=== PATIENT | female | born 1945 | race Caucasian/White ===

== ENCOUNTER 2016-11-27 08:09 | Outpatient (RCR) | payer MEDICARE ==
--- OUTSIDE RECORDS SUMMARY | 2016-11-25 14:17 | XMS REPORT | Continuity of Care Document ---
Author Author [facility] Organization [facility] Address Unknown Phone Unavailable Support Name Relationship Address Phone NHUNG MURRAY MD Caregiver [address] [place] [address] [place] Next Of Kin [address] [place], [place] [id number] Insurance Providers Payer Name Policy Number Subscriber Name Relationship Minerva Manjarrez Choice [id number] Kezia Gupta 17 Self / Same As Patient Advance Directives Directive Response Recorded Date/Time Advance Directives No 01/03/15 8:00am Organ Donor Yes 01/03/15 8:00am Resuscitation Status Full Code 01/03/15 8:00am Problems No known problems or medical conditions. Medications Medication Dose Route Sig Days/Qty Instructions Order Date Discontinued Date Status Estradiol 1 Mg PO EVERY OTHER MORNING 01/01/15 Active Meloxicam (Mobic) 15 Mg PO DAILY 01/01/15 Active Alendronate Sodium 70 Mg PO WEEKLY TAKES ON Fridays01/01/15 Active [place]-3/Dha/Epa/Fish Oil 1,000 Mg PO DAILY 01/01/15 Active Ascorbic Acid 1,000 Mg PO DAILY 01/01/15 Active Magnesium Oxide 500 Mg PO DAILY 01/01/15 Active Cholecalciferol (Vitamin D3) 1,000 Unit PO DAILY 01/01/15 Active Folic Acid/Mv,Fe,Other Min 1 Each PO DAILY 01/01/15 Active Tamsulosin HCl 0.4 Mg PO DAILY 01/01/15 Active Oxycodone Hcl/Acetaminophen 1 Each PO EVERY 4HRS PRN PAIN 01/01/15 Active Nitrofurantoin Macrocrystals 1 Each PO TWICE A DAY 14 Qty 01/03/15 Active Phenazopyridine HCl 1 Each PO TID PRN 21 Qty 01/03/15 Active Social History Social History Problem Response Recorded Date/Time Recent Foreign Travel No 01/03/2015 8:00am Smoking Status Current Everyday Smoker 01/03/2015 8:02am Query Response Start Date Stop Date Smoking Status Current Everyday Smoker Hospital Discharge Instructions No hospital discharge instructions. Plan of Care No plan of care. Functional Status No functional status results. Allergies, Adverse Reactions, Alerts Allergen Type Severity Reaction Status Last Updated No Known Drug Allergies Active 01/01/15 Immunizations Name Given Type Date of Influenza Vaccine 08/05/14 Historical Vital Signs Acute Vital Signs Vital Response Date/Time Temperature (Fahrenheit) 98.1 degrees F (97.6 - 99.5) Temperature (Calculated Celsius) 36.13640 degrees C (36.4 - 37.5) Temperature Source Temporal Pulse Rate (adult) 70 bpm (60 - 90) Respiratory Rate 18 bpm (12 - 24) O2 Sat by Pulse Oximetry 94 % (88 - 100) Blood Pressure 111/82 mm Hg Pain Pain Intensity 0 Height (Feet) 5 feet Height (Inches) 3.50 inches Height (Calculated Centimeters) 161.049159 cm Weight (Pounds) 136 pounds Weight (Calculated Grams) 51319.563 gm Weight (Calculated Kilograms) 61.180287 kilograms Height 5 ft 3.5 in Weight 136 lb Body Mass Index 23.7 kg/m^2 Results Laboratory Results Test Name Result Units Flags Reference Collection Date/Time Result Date/ Time Comments White Blood Count 7.2 10^3/uL 4.3-11.0 01/01/2015 2:30pm 01/01/2015 2: 57pm Red Blood Count 4.56 10^6/uL 4.35-5.85 01/01/2015 2:30pm 01/01/2015 2: 57pm Hemoglobin 14.1 G/DL 11.5-16.0 01/01/2015 2:30pm 01/01/2015 2:57pm Hematocrit 41 % 35-52 01/01/2015 2:30pm 01/01/2015 2:57pm Mean Corpuscular Volume 91 FL 80-99 01/01/2015 2:30pm 01/01/2015 2: 57pm Mean Corpuscular Hemoglobin 31 PG 25-34 01/01/2015 2:30pm 01/01/2015 2: 57pm Mean Corpuscular Hemoglobin Concent 34 G/DL 32-36 01/01/2015 2:30pm 12/2014 2:57pm Red Cell Distribution Width 12.8 % 10.0-14.5 01/01/2015 2:30pm 2014 2:57pm Platelet Count 312 10^3/uL 130-400 01/01/2015 2:30pm 01/01/2015 2:57pm Mean Platelet Volume 9.6 FL 7.4-10.4 01/01/2015 2:30pm 01/01/2015 2: 57pm Neutrophils (%) (Auto) 52 % 42-75 01/01/2015 2:30pm 01/01/2015 2:57pm Lymphocytes (%) (Auto) 38 % 12-44 01/01/2015 2:30pm 01/01/2015 2:57pm Monocytes (%) (Auto) 8 % 0-12 01/01/2015 2:30pm 01/01/2015 2:57pm Eosinophils (%) (Auto) 2 % 0-10 01/01/2015 2:30pm 01/01/2015 2:57pm Basophils (%) (Auto) 0 % 0-10 01/01/2015 2:30pm 01/01/2015 2:57pm Neutrophils # (Auto) 3.8 X 10^3 1.8-7.8 01/01/2015 2:30pm 01/01/2015 2: 57pm Lymphocytes # (Auto) 2.7 X 10^3 1.0-4.0 01/01/2015 2:30pm 01/01/2015 2: 57pm Monocytes # (Auto) 0.6 X 10^3 0.0-1.0 01/01/2015 2:30pm 01/01/2015 2: 57pm Eosinophils # (Auto) 0.1 10^3/uL 0.0-0.3 01/01/2015 2:30pm 01/01/2015 2 :57pm Basophils # (Auto) 0.0 10^3/uL 0.0-0.1 01/01/2015 2:30pm 01/01/2015 2: 57pm Sodium Level 140 MMOL/L 135-145 01/01/2015 2:30pm 01/01/2015 3:13pm Potassium Level 3.6 MMOL/L 3.6-5.0 01/01/2015 2:30pm 01/01/2015 3:13pm Chloride Level 107 MMOL/L 98-107 01/01/2015 2:30pm 01/01/2015 3:13pm Carbon Dioxide Level 25 MMOL/L 21-32 01/01/2015 2:30pm 01/01/2015 3: 13pm Blood Urea Nitrogen 14 MG/DL 7-18 01/01/2015 2:30pm 01/01/2015 3:13pm Creatinine 0.63 MG/DL 0.60-1.30 01/01/2015 2:30pm 01/01/2015 3:13pm BUN/Creatinine Ratio 22 01/01/2015 2:30pm 01/01/2015 3:13pm Estimat Glomerular Filtration Rate > 60 01/01/2015 2:30pm 2014 3:13pm GFR INTERPRETIVE DATA UNITS FOR ESTIMATED GFR (eGFR): mL/min/1.73 M2 REFERENCE RANGE FOR ESTIMATED GFR (eGFR) eGFR NORMAL eGFR >60 MODERATELY DECREASED eGFR 30-59 SEVERLY DECREASED eGFR 15-29 KIDNEY FAILURE <15 (OR DIALYSIS) Glucose Level 91 MG/DL 70-105 01/01/2015 2:30pm 01/01/2015 3:13pm Uric Acid 3.1 MG/DL 2.6-7.2 01/01/2015 2:30pm 01/01/2015 3:13pm Calcium Level 9.3 MG/DL 8.5-10.1 01/01/2015 2:30pm 01/01/2015 3:13pm Phosphorus Level 2.3 MG/DL 2.3-4.7 01/01/2015 2:30pm 01/01/2015 3:13pm Calcium (PTH Intact) 9.3 MG/DL 8.5-10.5 01/01/2015 2:30pm 01/02/2015 7: 35am Parathyroid Hormone (Intact) 83 H PG/ML 10-65 01/01/2015 2:30pm 2014 7:35am The Interpretation for this test has been moved online at: [email or web address] Enter Test Number:[id number] Procedures No known history of procedures. Encounters Encounter Location Date/Time Registered [facility] 01/03/15 6:31am Registered Clinic [facility] 01/01/15 1:57pm
--- NOTE | 2016-11-25 14:35 | Diagnostic Imaging Report ---
INDICATION: Nephrolithiasis/ TECHNIQUE: A single view of the abdomen was obtained. COMPARISON: 11/27/2015. FINDINGS: Numerous calcifications are again projecting over the upper and lower poles of the left kidney. Faint calcifications are also seen over the upper and mid aspects of the right kidney. Calcifications in the pelvis are unchanged and likely represent phleboliths. There is no evidence of stone along the course of either ureter. IMPRESSION: Bilateral nephrolithiasis without plain film evidence of ureteral stone. Otherwise, no acute abnormality is detected. Dictated by: Dictated on workstation # [id number]
[~2016-11-27 08:09] MED LIST: ALEN70TA47 PO; ASCO100083 PO; CHOL100061 PO; ESTR1TAB24 PO; FOLI1TAB11 PO; HYDR-3876 PO; MAGN500C4 PO; MELO-195 PO; NITR-65 PO; NITR100C44 PO; OMEG1CAP74 PO; OXYC-12 PO; PHEN200T27 PO; TAMS0.4C9 PO
[2016-12-01 22:39] LABS: STONE RISK AMMONIUM 22 mEq/24hr (14-62); STONE RISK BRUSHITE 0.66 (< 2.00); STONE RISK CALCIUM 190 mg/day (< 250); STONE RISK CITRATE 446 mg/day (> 320); STONE RISK CREATININE 800 mg/day (600-1800); STONE RISK MAGNESIUM 101 mg/day (> 60); STONE RISK OXALATE 21 mg/day (< 45); STONE RISK PH 5.5 (5.5-7.0); STONE RISK PHOSPHOROUS 689 mg/day (< 1100); STONE RISK POTASSIUM 26 mEq/24hr (19-135); STONE RISK SODIUM 132 mEq/24hr (< 200); STONE RISK STRUVITE 0.07 (< 75.00); STONE RISK SULFITE 10 mmol/day (< 30); STONE RISK TOTAL VOLUME 1.33 L/day (> 2.00); STONE RISK URIC ACID 241 mg/day (< 700); STONE RISK URIC ACID SAT 1.68 (< 2.00)
== END 2017-02-23 | disposition home or self-care (01) ==
LOC: RAD 08:09
PROVIDERS: ATTEND Urology
DX: N20.0 Calculus of kidney (principal)
CPT/HCPCS: 74000; 82140; 82340; 82507; 82570; 83735; 83945; 83986; 84105; 84133; 84300; 84392; 84560

== ENCOUNTER → 2017-10-05 | Outpatient (CLI) | payer MEDICARE ==
--- NOTE | 2017-10-05 19:41 | Diagnostic Imaging Report ---
PROCEDURE: CT abdomen and pelvis without contrast. TECHNIQUE: Multiple contiguous axial images were obtained through the abdomen and pelvis without the use of intravenous contrast. INDICATION: History of renal stones and UTI. FINDINGS: There is minimal atelectasis seen in the lung bases. Partially visualized breast implants are also suggested. The liver, the gallbladder, the pancreas, and the adrenal glands appear unremarkable. The spleen demonstrates calcified granulomas without enlargement. The kidneys demonstrate bilateral stones measuring up to 1 cm in the lower major calyx in the right renal collecting system with a 4 mm nonobstructive stone in the upper pole of the right kidney. The left kidney demonstrates nonobstructive stones up to 6 mm in size in the lower pole. No hydronephrosis on either side. There are calcifications in the pelvis, which appear to correlate with phleboliths with no ureteric stone. No bladder stone. There are numerous diverticula seen mostly in the sigmoid colon. No diverticulitis. No significant free fluid or fluid collection in the abdomen or pelvis is seen. The abdominal aorta is normal in caliber. No para-aortic significantly enlarged lymph node is noted. No pelvic lymphadenopathy is seen. The osseous structures demonstrate lower lumbar spine degenerative changes. IMPRESSION: Bilateral nonobstructive kidney stones, up to 1 cm in the right kidney. Dictated by: Dictated on workstation # [id number]
== END ==
LOC: RAD 15:53
PROVIDERS: ATTEND Urology
DX: N20.0 Calculus of kidney (principal); Z87.440 Personal history of urinary (tract) infections
CPT/HCPCS: 74176

== ENCOUNTER → 2017-10-15 | Outpatient (CLI) | payer MEDICARE ==
--- NOTE | 2017-10-15 14:40 | Diagnostic Imaging Report ---
KUB. INDICATION: History of bilateral stones. COMPARISON: 11/25/16. FINDINGS: There is a 1 cm stone seen in the right kidney and faint calcification in the left flank measuring 4 mm may relate to left kidney stone. Phleboliths in the right side of the pelvis are seen. No ureteric stone is identified. IMPRESSION: Bilateral kidney stones, up to 1 cm in size in the right kidney is seen. Dictated by: Dictated on workstation # [id number]
== END ==
LOC: RAD 12:34
PROVIDERS: ATTEND Urology
DX: N20.0 Calculus of kidney (principal)
CPT/HCPCS: 74000

== ENCOUNTER → 2020-07-27 | Outpatient (CLI) | payer MEDICARE ==
--- NOTE | 2020-07-27 10:44 | Diagnostic Imaging Report ---
INDICATION: History of recurrent bladder calculi. COMPARISON: 10/15/2017 FINDINGS: 2 frontal radiographic views of the abdomen were obtained. There has been interval increase in large calculus projecting over the right renal pelvis. It now measures 2.3 cm in diameter, in comparison to 1 cm previously. Multiple other smaller extraosseous calcifications are also seen projecting over the inferior poles of the renal shadows. These have increased in number. Small bowel loops are nondistended. There is no large collection of free intraperitoneal air. Osseous structures show no acute abnormalities. IMPRESSION: 1. Interval progression of bilateral nephrolithiasis as described above. 2. Nonobstructed small bowel gas pattern. Dictated by: Dictated on workstation # [id number]
== END ==
LOC: RAD FS 09:47
PROVIDERS: ATTEND Urology
DX: N20.2 Calculus of kidney with calculus of ureter (principal)
CPT/HCPCS: 74018

== ENCOUNTER → 2020-08-10 | Outpatient (CLI) | payer MEDICARE ==
--- NOTE | 2020-08-10 12:57 | Diagnostic Imaging Report ---
INDICATION: Right ureteral stent placement. Time of exam 12:18 p.m. Correlation is made with prior radiograph from 07/27/2020. There has been placement of a right-sided double-J nephroureteral stent. Calcific densities overlie both renal shadows consistent with calculi. There are multiple calcifications lined along the proximal aspect of the stent in the proximal right ureter suggestive of Steinstrasse. The bowel gas pattern is unremarkable. There is no free air. IMPRESSION: Bilateral nephrolithiasis. There are also numerous calcific densities along the proximal aspect of the double-J stent in the region of the proximal right ureter. Dictated by: Dictated on workstation # [id number]
== END ==
LOC: RAD FS 12:10
PROVIDERS: ATTEND Urology
DX: N20.0 Calculus of kidney (principal); Z96.0 Presence of urogenital implants
CPT/HCPCS: 74018

== ENCOUNTER → 2022-03-07 | Outpatient (CLI) | payer MEDICARE ==
--- NOTE | 2022-03-07 13:54 | Diagnostic Imaging Report ---
EXAMINATION: CT chest without contrast (lung screening). TECHNIQUE: Multiple contiguous axial images were obtained through the chest without the use of intravenous contrast according to lung cancer screening protocol. All CT scans use one or more of the following dose optimizing techniques: automated exposure control, MA and/or KvP adjustment based on patient size and exam type or iterative reconstruction. HISTORY: 50 pack year history of smoking. COMPARISON: None available. FINDINGS: Thyroid: The thyroid is normal. Mediastinum: Heart size is normal without significant pericardial effusion. The aorta is normal in caliber. No suspicious lymphadenopathy. Lungs and airways: There are background emphysematous changes of lungs without consolidation, pleural effusion, or pneumothorax. There is scarring within the lung bases. There are a couple of calcified granulomas. There is a 0.5 x 0.5 cm right lower lobe pulmonary nodule (series 2 image 159). The airways are normal. Upper abdomen: There are multiple left renal calculi measuring up to 0.4 cm. Musculoskeletal: Degenerative changes of the spine without suspicious osseous lesion or compression fracture. IMPRESSION: 1. A 0.5 cm right lower lobe pulmonary nodule. Recommend low-dose CT follow-up in 6 months. 2. COPD. LUNG-RADS CATEGORY: 3 MODIFIER: S Dictated by: Dictated on workstation # [id number]
== END ==
LOC: RAD 10:00
PROVIDERS: ATTEND Nurse Practitioner Family
DX: Z12.2 Encounter for screening for malignant neoplasm of respiratory organs (principal); J44.9 Chronic obstructive pulmonary disease, unspecified; R91.1 Solitary pulmonary nodule; Z87.891 Personal history of nicotine dependence
CPT/HCPCS: 71271

== ENCOUNTER → 2022-05-02 | Outpatient (CLI) | payer MEDICARE ==
--- NOTE | 2022-05-02 13:09 | Diagnostic Imaging Report ---
Indication: Low back pain and right-sided sciatica. Time of Exam: 1:00 p.m. Three views of the lumbar spine were obtained. Curvature of the lumbar spine is normal. There is grade 1 spondylolisthesis of L4 on L5. Vertebral body heights are well-maintained. No acute compression fracture is seen. Disc spaces are fairly well maintained. There is multilevel facet arthropathy. Aorta is partially calcified. There are some calcific densities overlying the renal shadows bilaterally which may represent renal calculi. IMPRESSION: 1. Lumbar spondylosis but no acute bony abnormality detected. 2. Probable bilateral nephrolithiasis. Dictated by: Dictated on workstation # [id number]
--- NOTE | 2022-05-02 14:42 | Diagnostic Imaging Report ---
INDICATION: Lumbago with right-sided sciatica. TECHNIQUE: AP pelvis along with bilateral oblique sacroiliac joints. CORRELATION STUDY: None. FINDINGS: Pelvis is intact with the pectineal lines and obturator rings maintained. Bilateral hip joints are maintained and unremarkable. Pubic symphysis is without diastasis. Bilateral sacroiliac joints overall appear to be patent. Definitive bony fusion or ankylosis is not demonstrated. No cate bony erosion or sclerosis. IMPRESSION: 1. Unremarkable pelvis and bilateral sacroiliac joints. Dictated by: Dictated on workstation # [id number]
== END ==
LOC: RAD FS 12:40
PROVIDERS: ATTEND Nurse Practitioner Family
DX: M47.816 Spondylosis without myelopathy or radiculopathy, lumbar region (principal)
CPT/HCPCS: 72100; 72202

== ENCOUNTER → 2022-09-08 | Outpatient (CLI) | payer MEDICARE ==
--- NOTE | 2022-09-08 13:42 | Diagnostic Imaging Report ---
CT Lung Screening INDICATION:Screening for lung cancer, pulmonary nodules, six-month follow-up from prior screening, 50 pack year history of smoking, quit 5 years prior TECHNIQUE: Noncontrast, low-dose CT imaging performed according to the lung cancer screening protocol. Auto Exposure Controls were utilize during the CT exam to meet ALARA standards for radiation dose reduction. COMPARISON:03/07/2022 FINDINGS:A few calcified mediastinal and hilar lymph nodes are present. No pathologically enlarged lymph nodes within the chest. Bilateral breast implants are in place. No aneurysmal dilatation of thoracic aorta. Minimal vascular calcifications. The heart is within normal limits in size. No pericardial effusion. No pleural effusion. The trachea is patent. No pneumothorax. Scarring within the anterior left upper lobe is again identified. Scarring within the lingula and right middle lobe is again seen. 0.5 cm right lower lobe pulmonary nodule is again identified and stable. This is subpleural in location. A few calcified granuloma are identified in the lungs. No new suspicious pulmonary nodule. Calcified hepatic and splenic granuloma. Minimally visualized upper abdomen is otherwise unremarkable. No acute osseous abnormality. IMPRESSION:Stable 0.5 cm mean diameter right lower lobe pulmonary nodule which demonstrates a benign appearance or behavior. No new pulmonary nodule. Evidence of chronic granulomatous disease. LUNG-RADS CATEGORY:2: Benign appearance or behavior FOLLOWUP: Continued annual low-dose CT of the chest in 12 months. Dictated by: Dictated on workstation # [id number]
== END ==
LOC: RAD 12:45
PROVIDERS: ATTEND Nurse Practitioner Family
DX: Z12.2 Encounter for screening for malignant neoplasm of respiratory organs (principal); R91.8 Other nonspecific abnormal finding of lung field; Z87.891 Personal history of nicotine dependence
CPT/HCPCS: 71271

== ENCOUNTER → 2022-09-23 | Outpatient (CLI) | payer MEDICARE ==
[~2022-09-23] MED LIST changes: +LINA145C PO
--- NOTE | 2022-09-23 10:04 | Diagnostic Imaging Report ---
EXAMINATION: CT abdomen and pelvis without contrast. TECHNIQUE: Multiple contiguous axial images were obtained through the abdomen and pelvis without the use of intravenous contrast. All CT scans use one or more of the following dose optimizing techniques: automated exposure control, MA and/or KvP adjustment based on patient size and exam type or iterative reconstruction. HISTORY: Urethral stones. COMPARISON: 10/05/2017 FINDINGS: Limited views of the lower thorax are unremarkable. The liver is normal without focal lesion. There is no biliary ductal dilation. Gallbladder is normal. Pancreas is normal. There are calcified granulomas in the spleen. Adrenal glands are normal. There are two stones measuring up to 8 mm at the left ureteropelvic junction with severe left-sided hydronephrosis. There are bilateral renal pelvic 2 to 3 mm stones. Urinary bladder is normal. Bowel is normal in caliber without obstruction or inflammation. No free fluid or air. No abdominal or pelvic lymphadenopathy. Aorta is normal in caliber without aneurysm. There are no suspicious osseous lesions. IMPRESSION: 1. Left ureteropelvic junction stones measuring up to 8 mm with severe left-sided hydronephrosis. Dictated by: Dictated on workstation # [id number]
--- NOTE | 2022-09-23 10:06 | Diagnostic Imaging Report ---
EXAMINATION: Abdomen 1 view HISTORY: URTERAL STONES COMPARISON: 09/23/2022 FINDINGS: There is a moderate amount of gas and stool throughout the colon. Nonobstructive bowel gas pattern.. Multiple stones are seen within the bilateral kidneys. There are prominent stones within the expected location of the left proximal ureter seen on CT measuring up to 1.0 cm. The lung bases are clear. The osseous structures are intact. IMPRESSION: Bilateral renal calculi and likely proximal left renal calculi measuring up to 1.0 cm. Dictated by: Dictated on workstation # [id number]
== END ==
LOC: RAD 09:45
PROVIDERS: ATTEND Urology
DX: N13.2 Hydronephrosis with renal and ureteral calculous obstruction (principal)
CPT/HCPCS: 74018; 74176

== ENCOUNTER 2022-09-24 05:37 | Outpatient (CLI) | payer MEDICARE ==
[~2022-09-24] VITALS: Ht 160 cm; Wt 72.0 kg
[~2022-09-24 05:37] MED LIST changes: -LINA145C PO
[2022-09-24] MEDS ORDERED: LINA145C PO (12:53)
== END 2022-09-24 12:59 | disposition home or self-care (01) ==
LOC: PREOP 05:37
PROVIDERS: ATTEND Urology
DX: Z01.818 Encounter for other preprocedural examination (principal)

== ENCOUNTER 2022-09-30 06:32 | Day surgery (SDC) | payer MEDICARE ==
[~2022-09-30] VITALS: Ht 160 cm; Wt 72.0 kg
[2022-09-30] VITALS (10 sets, daily range): BP systolic 129–141; BP diastolic 60–84
[~2022-09-30 06:32] MED LIST changes: +LINA145C PO
--- NOTE | 2022-09-30 07:28 | Progress Note-Pre Operative ---
Pre-Operative Progress Note Date of Available H&P: Sep 30, 2022 Date H&P Reviewed: Sep 30, 2022 Time H&P Reviewed: 07:28 Changes from last HP NONE Pre-Operative Diagnosis: LT PROXIMAL URETERAL STONES NHUNG MURRAY MD Sep 30, 2022 07:28
--- NOTE | 2022-09-30 07:35 | Progress Note-Post Operative ---
Post-Operative Progess Note Surgeon (s)/Glove Boarder (s) Surgeon NHUNG MURRAY MD Glove Boarder: NONE Pre-Operative Diagnosis LT RENAL STONES Post-Operative Diagnosis SAME Procedure & Operative Findings Date of Procedure 09/30/22 Procedure Performed/Findings LT ESWL Anesthesia Type GENERAL Estimated Blood Loss Estimated blood loss (mL): NONE Specimens/Packing Specimens Removed NONE Packing: NONE NHUNG MURRAY MD Sep 30, 2022 07:35
--- NOTE | 2022-09-30 07:37 | Discharge Inst-Urology ---
Discharge Inst-Urology Reconcile Patient Problems Problems Reviewed?: Yes Final Diagnosis LT PROXIMAL URETERAL STONES Patient Instructions/Follow Up Plan/Assessment/Instructions Please make appointment to been seen in office Saturday 10/13, KUB prior to it KUB on way home Post ESWL instructions Increase oral fluids for 48 hours and then as needed. Diet and Activity as tolerated. If questions or concerns contact your physician Or seek help at emergency department. NHUNG MURRAY MD Sep 30, 2022 07:37
[2022-09-30] MEDS ORDERED: cefTRIAXone 1 GM PRE-MIX 50 ML IV ONE (08:00)
[2022-09-30] MEDS: LACTATED RINGERS 1,000 ML IV PRN ×2 (08:13→10:04)
--- NOTE | 2022-09-30 08:36 | Diagnostic Imaging Report ---
INDICATION: Nephrolithiasis-ESWL. TECHNIQUE: Single radiograph of the abdomen at 7:19 AM. CORRELATION STUDY: 09/23/2022. FINDINGS: Calcifications over the mid abdomen are again demonstrated. There are small calcifications projecting over the right inferior pole renal silhouette. Slight change in orientation of the calcifications which were previously identified in the left renal pelvis; however, these remain in a fairly similar location with the largest measuring up to 11 mm with a slightly more inferior and smaller one measuring 10 mm. Additional smaller calcifications project over the renal silhouette. There are likely phleboliths in the pelvis. The overlying bowel gas pattern is nonobstructed in appearance. IMPRESSION: Findings compatible with bilateral renal calcifications. The two largest ones project over the expected location of the left renal pelvis as demonstrated on prior imaging. Dictated by: Dictated on workstation # [id number]
[2022-09-30] MEDS ORDERED: proPOfol 200 MG/20 ML (DIPRIVAN) VIAL IV ONE (09:18)
[2022-09-30] MEDS ORDERED: ONDANSETRON 4 MG/2 ML (SDV) Z0FRAN ONE (09:18)
[2022-09-30] MEDS ORDERED: fentaNYL INJ 100 MCG/2 ML AMP ONE (09:18)
[2022-09-30] MEDS ORDERED: SEVOFLURANE (ULTANE) 15 ML INHAL SOLN ONE ×3 (09:18→10:22)
[2022-09-30] MEDS ORDERED: LIDOCAINE PF 2% 5 ML (XYLOCAINE) VIAL ONE (09:18)
[2022-09-30] MEDS ORDERED: FUROSEMIDE 40 MG/4 ML INJ (LASIX) ONE (10:06)
[2022-09-30] MEDS ORDERED: KETOROLAC 30 MG/ML VIAL ONE (10:06)
[2022-09-30] MEDS ORDERED: ONDANSETRON 4 MG/2 ML (SDV) Z0FRAN IVP PRN (10:45)
[2022-09-30] MEDS ORDERED: morphine INJ 10 MG/ML 1ML (SYR OR VIAL) IVP ONE (10:45)
[2022-09-30] MEDS ORDERED: TMSL.4C PO (11:45)
[2022-09-30] MEDS ORDERED: NITR-65 PO (11:45)
[2022-09-30] MEDS ORDERED: KETO10TA PO (11:45)
--- NOTE | 2022-09-30 11:56 | Anesthesia-General Post-Op ---
General Patient Condition Mental Status/LOC: Same as Preop Cardiovascular: Satisfactory Nausea/Vomiting: Absent Respiratory: Satisfactory Pain: Controlled Complications: Absent Post Op Complications Complications None Follow Up Care/Instructions Patient Instructions None needed. Anesthesia/Patient Condition Patient Condition Patient is doing well, no complaints, stable vital signs, no apparent adverse anesthesia problems. No complications reported per nursing. FABIENNE LEARY DO Sep 30, 2022 11:56
--- NOTE | 2022-09-30 11:57 | Diagnostic Imaging Report ---
INDICATION: Post lithotripsy, renal stones COMPARISON: Imaging from same date TECHNIQUE: Single radiograph of abdomen dated 09/30/2022 at 1140h. FINDINGS: Previously noted dominant calcifications overlying the inferior pole of the left renal shadow/proximal left ureter appear improved since the prior examination. In particular, the previously noted dominant 1.0 cm calcification is not definitely visualized. Additional small calcifications overlying the bilateral renal shadows are again identified. 0.5 cm calcification is now identified overlying the central aspect of the left kidney. Phleboliths within the right pelvis. Nonpathologic bowel gas pattern. No free air. Osseous structures appear stable. IMPRESSION: Previously noted dominant large left-sided urinary calculi overlying the inferior pole of the left kidney/proximal left ureter are improved and not definitely visualized. 5 mm calcification now seen overlying the central left kidney most likely relates to a small stone fragment. Additional stable bilateral renal calculi. Dictated by: Dictated on workstation # [id number]
--- NOTE | 2022-09-30 21:18 | OPERATIVE REPORT ---
DATE OF SERVICE: 09/30/2022 PREOPERATIVE DIAGNOSIS: Left ureteropelvic junction renal stones. POSTOPERATIVE DIAGNOSIS: Left ureteropelvic junction renal stones. PROCEDURE PERFORMED: Left ESWL. SURGEON: Srinath Murray MD. ANESTHESIA: General. COMPLICATIONS: None. DESCRIPTION OF PROCEDURE: Under satisfactory general anesthesia, the patient in supine position on the ESWL table, the left UPJ stone was localized. Shocks were delivered at a kV of 6 and 2500 shocks fragmented the stone nicely. However, she may need a second ESWL because of the amount of stones and fragments, which was explained to her preoperatively. Total of 2500 shocks were delivered. The patient received 40 mg of Lasix and 15 mg of Toradol IV at the end of the procedure. She tolerated the procedure and anesthesia well and was sent to the recovery room in stable condition. CC: [facility] -- requested, unable to deliver. Job ID: [id number] DocumentID: [id number] Dictated Date: 09/30/2022 10:21:21 Retail Marketing Coordinator Date: 09/30/2022 21:16:00 Dictated By: SRINATH MURRAY MD
== END 2022-09-30 12:18 | disposition home or self-care (01) ==
LOC: SDC 06:32
PROVIDERS: ATTEND Urology
DX: N20.1 Calculus of ureter (principal); M81.0 Age-related osteoporosis without current pathological fracture; M19.90 Unspecified osteoarthritis, unspecified site; Z87.891 Personal history of nicotine dependence
CPT/HCPCS: 74018; 87081

== ENCOUNTER 2022-10-02 23:27 | Emergency (ER) | payer MEDICARE ==
[~2022-10-02] VITALS: Ht 160 cm; Wt 72.8 kg
[~2022-10-02 23:27] MED LIST changes: +KETO10TA PO; +TMSL.4C PO
--- NOTE | 2022-10-02 23:36 | ED General ---
General Stated Complaint: RT LUNG PAIN History of Present Illness Date Seen by Provider: Oct 02, 2022 Time Seen by Provider: 23:36 Initial Comments 76-year-old female presents with "right lung pain" patient reports that she is felt short of breath since 1:30 AM this morning. Patient reports that on 09/30/2022 she had a lithotripsy for a left sided kidney stone. That she had post lithotripsy pain today. Patient is complaining of pain over in her right side. She denies any fevers, chills, nausea, vomiting. Please do not use Tylenol for pain medication with your liver enzymes being elevated until cleared by your primary care provider Allergies and Home Medications Allergies Coded Allergies: No Known Drug Allergies (Unverified , 01/01/15) Patient Home Medication List Home Medication List Reviewed: Yes Alendronate Sodium (Alendronate Sodium) 70 Mg Tablet, 70 MG PO WEEKLY, (Reported) Entered as Reported by: MELISSA GRANT on 01/01/15 1508 Ascorbic Acid (Vitamin C) 1,000 Mg Tab.chew, 1,000 MG PO DAILY, (Reported) Entered as Reported by: MELISSA GRANT on 01/01/15 1508 Cholecalciferol (Vitamin D3) (Vitamin D3) 1,000 Unit Tablet, 1,000 UNIT PO DAILY, (Reported) Entered as Reported by: MELISSA GRANT on 01/01/15 1508 Estradiol (Estradiol) 1 Mg Tablet, 1 MG PO EVERY OTHER MORNING, (Reported) Entered as Reported by: MELISSA GRANT on 01/01/15 1508 Folic Acid/Mv,Fe,Other Min (Centrum Ultra Women's Tablet) 1 Each Tablet, 1 EACH PO DAILY, (Reported) Entered as Reported by: MELISSA GRANT on 01/01/15 1508 Ketorolac Tromethamine (Ketorolac Tromethamine) 10 Mg Tablet, 10 MG PO Q6H Prescribed by: Naila Samuels on 09/30/22 1145 Linaclotide (Linzess) 145 Mcg Capsule, 145 MCG PO Q2-3 DAYS, (Reported) Entered as Reported by: ANTONIO MARTIN on 09/24/22 1253 Meloxicam (Meloxicam) 15 Mg Tablet, 15 MG PO DAILY, (Reported) Entered as Reported by: MELISSA GRANT on 01/01/15 1508 Nitrofurantoin Monohyd/M-Cryst (Macrobid 100 mg Capsule) 100 Mg Capsule, 1 TAB PO BID Prescribed by: Naila Samuels on 09/30/22 1145 [place]-3/Dha/Epa/Fish Oil (Fish Oil 1,000 Mg Softgel) 1,000 Mg Capsule, 1,000 MG PO DAILY, (Reported) Entered as Reported by: MELISSA GRANT on 01/01/15 1508 Tamsulosin HCl (Flomax) 0.4 Mg Cap, 0.4 MG PO DAILY Prescribed by: Naila Samuels on 09/30/22 1145 Discontinued Medications Hydrocodone/Acetaminophen (Lorcet Hd 10-325 mg Tablet) 1 Each Tablet, 1-2 TAB PO Q4H Discontinued Reason: No Longer Taking Prescribed by: PINEDA CARRERO on 01/16/15 1135 Nitrofurantoin/Nitrofuran Mac (Macrobid 100 Mg Capsule) 100 Mg Capsule, 100 MG P O BID Discontinued Reason: No Longer Taking Prescribed by: PINEDA CARRERO on 01/16/15 1134 Review of Systems Review of Systems Constitutional: No chills, No fever; malaise EENTM: no symptoms reported Respiratory: see HPI Cardiovascular: no symptoms reported Gastrointestinal: no symptoms reported Genitourinary: no symptoms reported Musculoskeletal: no symptoms reported Skin: no symptoms reported Psychiatric/Neurological: No Symptoms Reported Past Ivhgdrz-Ejgqyk-Aqngsv Hx Immunizations Up To Date First/Initial COVID19 Vaccinat: 2020 Second COVID19 Vaccination Tod: 2020 Third COVID19 Vaccination Date: 2021 Seasonal Allergies Seasonal Allergies: Yes Past Medical History Surgeries: Yes (SEVERAL LUMPECTOMY THEN BILAT MASTECTOMY WITH IMPLANTS, KIDNEY STONE SX X2) Respiratory: No Cardiac: No Neurological: No Genitourinary: Yes Kidney Stones Gastrointestinal: No Musculoskeletal: Yes (ARTHRITIS) Endocrine: No Cancer: No Psychosocial: No Integumentary: No Blood Disorders: No Physical Exam Vital Signs Vital Signs - First Documented 10/02/22 23:30 Temp 36.8 Pulse 94 Resp 26 B/P (MAP) 154/71 (98) Pulse Ox 92 O2 Delivery Room Air Capillary Refill : Height, Weight, BMI Height: 5'3.50" Weight: 136lbs. oz. [id number]; 28.12 BMI Method: General Appearance: No Apparent Distress, WD/WN Neck: Non Tender Respiratory: Lungs Clear, Normal Breath Sounds Cardiovascular: Regular Rate, Rhythm, No Edema Gastrointestinal: Non Tender, Soft Extremity: Normal Capillary Refill, Normal Inspection Neurologic/Psychiatric: Alert, Oriented x3, No Motor/Sensory Deficits, Normal Mood/Affect, supervisor alum plant II-XII Norm as Tested Skin: Normal Color, Warm/Dry Progress/Results/Core Measures Suspected Sepsis SIRS Temperature: Pulse: Respiratory Rate: Laboratory Tests 10/02/22 23:42: White Blood Count 14.7H Blood Pressure / Mean: Laboratory Tests 10/02/22 23:42: Creatinine 0.75, Platelet Count 389, Total Bilirubin 1.0 Results/Orders Lab Results Laboratory Tests Test 10/02/22 23:42 10/02/22 23:59 Range/Units White Blood Count 14.7 H 4.3-11.0 10^3/uL Red Blood Count 4.08 3.80-5.11 10^6/uL Hemoglobin 12.4 11.5-16.0 g/dL Hematocrit 36 35-52 % Mean Corpuscular Volume 89 80-99 fL Mean Corpuscular Hemoglobin 30 25-34 pg Mean Corpuscular Hemoglobin Concent 34 32-36 g/dL Red Cell Distribution Width 12.4 10.0-14.5 % Platelet Count 389 130-400 10^3/uL Mean Platelet Volume 9.1 9.0-12.2 fL Immature Granulocyte % (Auto) 1 % Neutrophils (%) (Auto) 80 H 42-75 % Lymphocytes (%) (Auto) 6 L 12-44 % Monocytes (%) (Auto) 9 0-12 % Eosinophils (%) (Auto) 4 0-10 % Basophils (%) (Auto) 0 0-10 % Neutrophils # (Auto) 11.7 H 1.8-7.8 10^3/uL Lymphocytes # (Auto) 0.9 L 1.0-4.0 10^3/uL Monocytes # (Auto) 1.3 H 0.0-1.0 10^3/uL Eosinophils # (Auto) 0.6 H 0.0-0.3 10^3/uL Basophils # (Auto) 0.1 0.0-0.1 10^3/uL Immature Granulocyte # (Auto) 0.1 0.0-0.1 10^3/uL Neutrophils % (Manual) 87 % Lymphocytes % (Manual) 6 % Monocytes % (Manual) 3 % Eosinophils % (Manual) 3 % Band Neutrophils 1 % Platelet Estimate NORMAL Clumped Platelets FEW Poikilocytosis SLIGHT Mignon Cells SLIGHT Sodium Level 141 135-145 MMOL/L Potassium Level 3.5 L 3.6-5.0 MMOL/L Chloride Level 99 98-107 MMOL/L Carbon Dioxide Level 26 21-32 MMOL/L Anion Gap 16 H 5-14 MMOL/L Blood Urea Nitrogen 20 H 7-18 MG/DL Creatinine 0.75 0.60-1.30 MG/DL Estimat Glomerular Filtration Rate 82 BUN/Creatinine Ratio 27 Glucose Level 113 H 70-105 MG/DL Calcium Level 9.4 8.5-10.1 MG/DL Corrected Calcium 9.7 8.5-10.1 MG/DL Magnesium Level 1.7 1.6-2.4 MG/DL Total Bilirubin 1.0 0.1-1.0 MG/DL Aspartate Amino Transf (AST/SGOT) 552 H 5-34 U/L Alanine Aminotransferase (ALT/SGPT) 330 H 0-55 U/L Alkaline Phosphatase 262 H 40-136 U/L Total Protein 7.2 6.4-8.2 GM/DL Albumin 3.6 3.2-4.5 GM/DL Urine Color YELLOW Urine Clarity SL CLOUDY Urine pH 7.0 5-9 Urine Specific [place] <=1.005 1.016-1.022 Urine Protein NEGATIVE NEGATIVE Urine Glucose (UA) NEGATIVE NEGATIVE Urine Ketones NEGATIVE NEGATIVE Urine Nitrite NEGATIVE NEGATIVE Urine Bilirubin NEGATIVE NEGATIVE Urine Urobilinogen 0.2 < = 1.0 MG/DL Urine Leukocyte Esterase 2+ H NEGATIVE Urine RBC (Auto) 3+ H NEGATIVE Urine RBC 50-100 H /HPF Urine WBC 10-25 H /HPF Urine Squamous Epithelial Cells 10-25 H /HPF Urine Crystals NONE /LPF Urine Bacteria TRACE /HPF Urine Casts PRESENT /LPF Urine Hyaline Casts 0-2 H /LPF Urine Mucus SMALL H /LPF Urine Culture Indicated YES My Orders Orders - FAY,KEMAL L DO Chest Pa/Lat (2 View) (10/02/22 23:40) Cbc With Automated Diff (10/02/22 23:40) Comprehensive Metabolic Panel (10/02/22 23:40) Magnesium (10/02/22 23:40) Ua Culture If Indicated (10/02/22 23:40) Ct Abdomen/Pelvis Wo (10/03/22 00:01) Manual Differential (10/02/22 23:42) Urine Culture (10/02/22 23:59) Fentanyl Inj (Sublimaze Injection) (10/03/22 01:01) Vital Signs/I&O 10/02/22 23:30 Temp 36.8 Pulse 94 Resp 26 B/P (MAP) 154/71 (98) Pulse Ox 92 O2 Delivery Room Air Capillary Refill : Progress Note : Progress Note Patient x-ray shows no significant findings. Patient's lung base on the right has a 7 mm nodule that is slightly bigger than her previous CT the they are already aware of her primary care provider can follow-up. Patient also has elevated liver enzymes. I do not have any prior enzymes to compare to. I suspect she has cirrhosis based on nodular contour of the liver. She will need to follow-up with her primary care provider for further evaluation. She has normal bilirubin. Patient with a urinary tract infection but already on antibiotics post lithotripsy. She does have some mild residual stone and needs to follow-up with Dr. Parada. For continued outpatient monitoring treatment. Patient stable and discharged ECG Initial ECG Impression Date: Oct 02, 2022 Initial ECG Impression Time: 23:37 Initial ECG Rate: 98 Initial ECG Rhythm: Normal Sinus Initial ECG Intervals: Normal Comment no acute findings Diagnostic Imaging Diagonstic Imaging: CT Plain Films/CT/US/NM/MRI: abdomen, pelvis Comments 7 mm nodule right lower lobe, moderate to severe left hydronephrosis with residual 1.3 cm stone proximal left ureter Departure Impression Primary Impression: Elevated liver enzymes Additional Impressions: Hydronephrosis concurrent with and due to calculi of kidney and ureter Right lower lobe pulmonary nodule Left ureteral calculus Disposition: 01 HOME, SELF-CARE Condition: Stable Departure-Patient Inst. Referrals: [facility] (PCP) Primary Care Physician TODD ORANTES APRN (Family) Primary Care Physician Patient Instructions: Kidney Stones in Adults, Pulmonary Nodule Add. Discharge Instructions: Please follow-up with your primary care provider to have them continue monitor your and further evaluation of of right lower lobe lung nodule along with further evaluation of your elevated liver enzymes. Please follow-up with Dr. Parada regarding your to your left ureter stone and urinary tract infection. KEMAL AFY DO Oct 02, 2022 23:36
[2022-10-02 23:51] LABS: BASOPHILS # (AUTO) 0.1 10^3/uL (0.0-0.1); BASOPHILS % (AUTO) 0 % (0-10); EOSINOPHILS # (AUTO) 0.6 10^3/uL (0.0-0.3); EOSINOPHILS % (AUTO) 4 % (0-10); HEMATOCRIT 36 % (35-52); HEMOGLOBIN 12.4 g/dL (11.5-16.0); LYMPHOCYTES # (AUTO) 0.9 10^3/uL (1.0-4.0); LYMPHOCYTES % (AUTO) 6 % (12-44); MEAN CORPUSCULAR HEMOGLOBIN 30 pg (25-34); MEAN CORPUSCULAR HGB CONC 34 g/dL (32-36); MEAN CORPUSCULAR VOLUME 89 fL (80-99); MEAN PLATELET VOLUME 9.1 fL (9.0-12.2); MONOCYTES # (AUTO) 1.3 10^3/uL (0.0-1.0); MONOCYTES % (AUTO) 9 % (0-12); NEUTROPHILS # (AUTO) 11.7 10^3/uL (1.8-7.8); NEUTROPHILS % (AUTO) 80 % (42-75); PLATELET COUNT 389 10^3/uL (130-400); WHITE BLOOD COUNT 14.7 10^3/uL (4.3-11.0)
[2022-10-03 00:04] LABS: BILIRUBIN,URINE NEGATIVE (NEGATIVE); CLARITY,URINE SL CLOUDY; COLOR,URINE YELLOW; GLUCOSE, URINE (UA) NEGATIVE (NEGATIVE); KETONES,URINE NEGATIVE (NEGATIVE); LEUKOCYTE ESTERASE ,URINE 2+ (NEGATIVE); NITRITE,URINE NEGATIVE (NEGATIVE); PROTEIN,URINE NEGATIVE (NEGATIVE)
[2022-10-03 00:14] LABS: BACTERIA,URINE TRACE /HPF; HYALINE CASTS, URINE 0-2 /LPF; RBC,URINE 50-100 /HPF
[2022-10-03 00:16] LABS: ALBUMIN 3.6 GM/DL (3.2-4.5); CALCIUM 9.4 MG/DL (8.5-10.1); CREATININE SERUM 0.75 MG/DL (0.60-1.30); MAGNESIUM 1.7 MG/DL (1.6-2.4); POTASSIUM 3.5 MMOL/L (3.6-5.0); TOTAL PROTEIN 7.2 GM/DL (6.4-8.2)
[2022-10-03 00:29] LABS: BAND NEUTROPHILS 1 %; BURR CELLS SLIGHT; EOSINOPHILS % (MANUAL) 3 %; LYMPHOCYTES % (MANUAL) 6 %; MONOCYTES % (MANUAL) 3 %; NEUTROPHILS % (MANUAL) 87 %; PLATELET CLUMPS FEW; POIKILOCYTOSIS SLIGHT
[2022-10-03 00:30] LABS: PLATELET ESTIMATE NORMAL
[2022-10-03] MEDS ORDERED: fentaNYL INJ 100 MCG/2 ML AMP IVP STA (01:01)
[2022-10-03 01:17] VITALS: BP 139/53
--- NOTE | 2022-10-03 06:52 | Diagnostic Imaging Report ---
CHEST PA/LAT (2 VIEW) Indication: Shortness of air Comparison: CT chest of 09/08/2022 Findings: There are a few scattered areas of linear atelectasis within the lingula. Otherwise, lungs are clear. No pleural effusion or pneumothorax. Normal heart size and mediastinal contours. Impression: No acute cardiopulmonary process. Dictated by: Dictated on workstation # [id number]
--- NOTE | 2022-10-03 06:54 | Diagnostic Imaging Report ---
CT ABDOMEN/PELVIS WO TECHNIQUE: Unenhanced CT imaging of the abdomen and pelvis was performed. 2-D reformats are created and submitted for interpretation. Automatic exposure controls were utilized to optimize patient dose. INDICATION: Right flank pain COMPARISON: 09/23/2022 FINDINGS: Lower chest: There are a few scattered areas of atelectasis within the lung bases. The 5 mm right lower lobe pulmonary nodule was stable for lung cancer screening CT from 03/07/2022. Please see that report for recommended followup. Trace right pleural effusion. Peritoneum: No free intraperitoneal air or fluid. Liver and biliary system: Unenhanced liver is normal. The gallbladder is normal. No biliary duct dilation. Spleen and Pancreas: Numerous small calcific splenic granulomas are unchanged. Unenhanced pancreas is grossly normal. Adrenals: Normal. tract: No change in position of the 8 mm stone in the proximal left ureter just below the UPJ. Moderate to severe left-sided hydronephrosis is unchanged. Multiple nonobstructing bilateral renal stones are also stable. Urinary bladder is normally filled without wall thickening. Hysterectomy. No adnexal mass. GI tract: Stomach is decompressed. No bowel obstruction. Sigmoid colon diverticulosis without diverticulitis. Normal appendix. Vasculature and Lymph nodes: Normal caliber aorta. No abdominal or pelvic lymphadenopathy. Musculoskeletal: No concerning osseous lesion. IMPRESSION: 1. No change in the moderate to severe left hydronephrosis due to a stone at the left UPJ. This stone measures 8 mm in transverse diameter. Preliminary report measures 13 mm, although this is the craniocaudal length of the elongated stone 2. Findings are in agreement with the preliminary report. Dictated by: Dictated on workstation # [id number]
== END 2022-10-03 01:17 | disposition home or self-care (01) ==
LOC: EDUNIT# 23:27 → ER FS 23:30
DX: R74.8 Abnormal levels of other serum enzymes (principal); N13.2 Hydronephrosis with renal and ureteral calculous obstruction; R91.8 Other nonspecific abnormal finding of lung field; Z98.890 Other specified postprocedural states
CPT/HCPCS: 36415; 71046; 74176; 80053; 81000; 83735; 85007; 85027; 87088; 93005

== ENCOUNTER → 2022-10-10 | Outpatient (CLI) | payer MEDICARE ==
--- NOTE | 2022-10-10 14:53 | Diagnostic Imaging Report ---
EXAMINATION: Abdomen 1 view HISTORY: LT UPPER URETERAL STONE POST ESWL COMPARISON: 09/30/2022 FINDINGS: There is a moderate amount of gas and stool throughout the colon. Nonobstructive bowel gas pattern. 2 small radiopaque stones within the left mid abdomen likely left ureter measuring up to 0.7 cm. The lung bases are clear. The osseous structures are intact. IMPRESSION: Radio opacities overlying the left mid abdomen measuring up to 0.7 cm. Dictated by: Dictated on workstation # [id number]
== END ==
LOC: RAD 09:44
PROVIDERS: ATTEND Urology
DX: N20.1 Calculus of ureter (principal)
CPT/HCPCS: 74018

== ENCOUNTER → 2023-08-27 | Outpatient (CLI) | payer MEDICARE ==
--- NOTE | 2023-08-27 14:51 | Diagnostic Imaging Report ---
INDICATION: Right hand pain, especially in the middle finger. COMPARISONS: None. FINDINGS: Three views of the right hand show some age-appropriate degenerative changes in the PIP and DIP joints of the second and third digits and to a lesser extent the fourth and fifth digits. There is also some PIP degenerative joint disease of the thumb. There are moderate degenerative changes at the first and second carpometacarpal joint spaces. Some mild radioulnar joint space arthropathy is also noted. IMPRESSION: 1. 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 This is most prominent in the second and third digits. 2. Mild degenerative joint disease is seen in the DIP joint of the right thumb. 3. There is moderate degenerative joint disease of the first and second carpometacarpal joint space as well as the right radioulnar joint space. Dictated by: Dictated on workstation # [id number]
== END ==
LOC: ORTHO 13:24
PROVIDERS: ATTEND Orthopaedic Surgery
DX: M19.041 Primary osteoarthritis, right hand (principal)
CPT/HCPCS: 73140; G0463; 99203

== ENCOUNTER → 2023-10-08 | Outpatient (CLI) | payer MEDICARE | LOC: ORTHO 10:05 | PROVIDERS: ATTEND Orthopaedic Surgery | DX: M19.041 Primary osteoarthritis, right hand (principal) | CPT/HCPCS: 99213 ==